=== PATIENT | male | born 1970 | race Asian ===

== ENCOUNTER 2016-10-13 13:19 | Outpatient (CLI) | payer MEDICAID | END 2016-10-13 13:20 | disposition home or self-care (01) | DX: I10 Essential (primary) hypertension (principal); E78.5 Hyperlipidemia, unspecified; R10.12 Left upper quadrant pain; Z12.5 Encounter for screening for malignant neoplasm of prostate ==

== ENCOUNTER 2018-10-26 08:00 | Outpatient (CLI) | payer MEDICAID ==
[2018-10-26 12:36] LABS: BASOPHILS # (AUTO) 0.1 10^3/uL (0.0-0.1); BASOPHILS % (AUTO) 0.4 %; EOSINOPHILS % (AUTO) 0.1 %; HGB - HEMOGLOBIN 13.5 g/dL (14.0-18.0); LYMPHOCYTES # (AUTO) 1.4 10^3/uL (1.5-3.5); LYMPHOCYTES % (AUTO) 8.8 %; MEAN CORPUSCULAR HEMOGLOBIN 29.4 pg (27.0-31.0); MEAN CORPUSCULAR HGB CONC 33.7 g/dL (32.0-36.0); MEAN CORPUSCULAR VOLUME 87.2 fL (80.0-94.0); MEAN PLATELET VOLUME 8.7 fL (7.4-11.4); MONOCYTES # (AUTO) 1.4 10^3/uL (0.0-1.0); MONOCYTES % (AUTO) 8.9 %; NEUTROPHILS # (AUTO) 12.9 10^3/uL (1.5-6.6); NEUTROPHILS % (AUTO) 81.8 %; PLT - PLATELET COUNT 266 10^3/uL (130-450); RED BLOOD COUNT 4.59 10^6/uL (4.70-6.10); RED CELL DISTRIBUTION WIDTH 13.2 % (12.0-15.0); WHITE BLOOD COUNT 15.8 x10^3/uL (4.8-10.8)
[2018-10-26 12:54] LABS: BUN - BLOOD UREA NITROGEN 11 mg/dL (6-20); CALCIUM 9.1 mg/dL (8.5-10.3); CARBON DIOXIDE - CO2 26 mmol/L (21-32); CHLORIDE 101 mmol/L (101-111); CHOLESTEROL 182 mg/dL; CREATININE 1.1 mg/dL (0.6-1.2); GFR - MDRD 71 (>89); GLUCOSE 118 mg/dL (70-100); HDL CHOLESTEROL 60 mg/dL; LDL CHOLESTEROL,CALCULATED 103 mg/dL; LDL/HDL RATIO 1.7 (<3.6); SODIUM 135 mmol/L (135-145); VLDL CHOLESTEROL 19 mg/dL
== END 2018-10-26 23:59 | disposition home or self-care (01) ==
LOC: LAB.N 08:00
PROVIDERS: ATTEND Physician Assistant Medical
DX: E78.5 Hyperlipidemia, unspecified (principal); I10 Essential (primary) hypertension
CPT/HCPCS: 36415; 80048; 80061; 83721; 85025

== ENCOUNTER 2018-10-26 09:11 | Outpatient (CLI) | payer MEDICAID ==
--- NOTE | 2018-10-26 13:07 | XRAY Report ---
Reason: PAIN IN RIGHT SHOULDER Procedure Date: 10/26/2018 Accession Number: [id number] / [id number] Procedure: XRN - Shoulder 3 View RT CPT Code: FULL RESULT: EXAM: RIGHT SHOULDER RADIOGRAPHY EXAM DATE: 10/26/2018 09:38 AM. CLINICAL HISTORY: Pain in right shoulder. COMPARISON: None. TECHNIQUE: 3 views. FINDINGS: Bones: Normal. No fracture or bone lesion. Joints: The glenohumeral and acromioclavicular joints are normal. Soft tissues: The visualized hemithorax is unremarkable. No soft tissue swelling. IMPRESSION: Normal shoulder radiography. [facility]
== END 2018-10-26 09:12 | disposition home or self-care (01) ==
LOC: DI.N 09:11
PROVIDERS: ATTEND Physician Assistant Medical
DX: M25.511 Pain in right shoulder (principal); E78.5 Hyperlipidemia, unspecified; I10 Essential (primary) hypertension
CPT/HCPCS: 36415; 80048; 80061; 85025

== ENCOUNTER 2018-10-28 11:57 | Emergency (ER) | payer MEDICAID ==
[2018-10-28 12:33] LABS: BILIRUBIN,URINE NEGATIVE (NEGATIVE); GLUCOSE, URINE (UA) NEGATIVE (NEGATIVE); KETONES,URINE (UA) NEGATIVE (NEGATIVE); LEUKOCYTE ESTERASE, URINE TRACE (NEGATIVE); NITRITE,URINE NEGATIVE (NEGATIVE); OCCULT BLOOD,URINE MODERATE (NEGATIVE); PROTEIN,URINE NEGATIVE (NEGATIVE); UROBILINOGEN,URINE 0.2 (NORMAL) E.U./dL (NORMAL)
--- NOTE | 2018-10-28 12:43 | ED Physician Documentation ---
PD HPI MALE - Stated complaint Stated Complaint: MALE - Chief complaint Chief Complaint: Abd Pain - History obtained from History obtained from: Patient - History of Present Illness Timing - onset: How many days ago (2-3 days of feverish, aching, malaise without URI symptoms. Has hematuria since yesterday. No dysuria per se. Was having feeling of constipation yesterday and had to strain to get stool out, then better BM today. Yesterday felt that he was not emptying bladder well. It was after that that the hematuria started.) Timing - details: Abrupt onset Associated symptoms: Hematuria. No: Dysuria, Genital sore / lesion, Testiclar pain PD HPI MALE CONTRIB FACTORS: No: Exposed to STD Similar symptoms before: Has not had sx before Recently seen: Not recently seen Review of Systems Constitutional: reports: Fever, Chills GI: reports: Constipation : reports: Frequency, Hematuria. denies: Dysuria PD PAST MEDICAL HISTORY - Past Medical History Cardiovascular: None GI: None : None - Present Medications Home Medications: Ambulatory Orders Medication Instructions Recorded Confirmed Nitrofurantoin Monohyd/M-Cryst 100 mg PO BID #14 capsule 10/28/18 [Macrobid 100 mg Capsule] - Allergies Allergies/Adverse Reactions: Allergies Allergy/AdvReac Type Severity Reaction Status Date / Time No Known Drug Allergies Allergy Verified 10/28/18 12:08 PD ED PE NORMAL - Vitals Vital signs reviewed: Yes - General General: Alert and oriented X 3, Well developed/nourished - Abdomen Abdomen: Soft, Non tender - Male Male : Other (normal external) - Derm Derm: Normal color, Warm and dry Results - Vitals Vitals: Vital Signs - 24 hr 10/28/18 13:49 Temperature 36.7 C Heart Rate 86 Respiratory 18 Rate Blood Pressure 148/90 H O2 Saturation 98 Oxygen O2 Source Room air - Labs Labs: Microbiology 10/28/18 12:22 Urine Culture - Final Urine,Clean Catch Less Than 10,000 COLONIES/ML UROGENITAL ADAMA Laboratory Tests 10/28/18 12:22 Urine Color YELLOW Urine Clarity CLEAR Urine pH 7.0 Ur Specific [place] <=1.005 Urine Protein NEGATIVE Urine Glucose (UA) NEGATIVE Urine Ketones NEGATIVE Urine Occult Blood MODERATE H Urine Nitrite NEGATIVE Urine Bilirubin NEGATIVE Urine Urobilinogen 0.2 (NORMAL) Ur Leukocyte Esterase TRACE H Urine RBC 6-10 H Urine WBC 6-10 H Ur Squamous Epith Cells RARE Squamous Urine Bacteria Few Ur Microscopic Review INDICATED Urine Culture Comments INDICATED Departure - Departure Disposition: 01 Home, Self Care Clinical Impression: Hematuria Qualifiers: Hematuria type: gross Qualified Code(s): R31.0 - Gross hematuria UTI (urinary tract infection) Qualifiers: Urinary tract infection type: acute cystitis Hematuria presence: with hematuria Qualified Code(s): N30.01 - Acute cystitis with hematuria Condition: Stable Record reviewed to determine appropriate education?: Yes Instructions: ED UTI Cystitis Male Follow-Up: Stephan Call PA-C [Primary Care Provider] - Prescriptions: Nitrofurantoin Monohyd/M-Cryst [Macrobid 100 mg Capsule] 100 mg PO BID #14 capsule Comments: Drink lots of fluids. There is signs of some urinary tract infection (bladder infection) on your urine test so we will treat that with an antibiotic for the next week. The blood in the urine potentially may have come from some bladder over stretching either from the infection or even from the constipation you would had. This should clear and improve with more normal bowel movements and more normal urination. Recheck if not better over the next few days. Discharge Date/Time: 10/28/18 13:50
[2018-10-28 12:44] LABS: CLARITY,URINE CLEAR (CLEAR)
[2018-10-28 12:51] LABS: BACTERIA,URINE Few /HPF (None Seen); SQUAMOUS EPITHELIAL CELL,UR RARE Squamous (<= Few)
[2018-10-28] MEDS ORDERED: NITROFURANTOIN MACRO 100 MG CAPSULE PO STA (13:34)
[2018-10-28 13:49] VITALS: BP 148/90
== END 2018-10-28 13:50 | disposition home or self-care (01) ==
LOC: ED 11:57
DX: N30.01 Acute cystitis with hematuria (principal)
CPT/HCPCS: 51798; 81001; 87086; 99283; A9270; 81003

== ENCOUNTER 2023-04-20 18:08 | Outpatient (CLI) | payer SELFPAY | END 2023-04-20 23:59 | disposition E | LOC: EMS 18:08 ==